=== PATIENT | male | born 1965 | race Caucasian/White ===

== ENCOUNTER 2019-12-30 11:37 | Day surgery (SDC) | payer BC ==
[~2019-12-30] VITALS: Ht 172.7 cm; Wt 76.7 kg
--- NOTE | 2019-12-30 12:26 | NUR ---
12/30/19 1226 True,Miky MARINELLI DRAWN SENT TO LAB
== END 2019-12-30 13:43 | disposition home or self-care (01) ==
LOC: ORSCSDS 11:37
PROVIDERS: Internal Medicine Gastroenterology
PROC: 0DBK8ZX Excision of Ascending Colon, Via Natural or Artificial Opening Endoscopic, Diagnostic (ICD-10-PCS; principal; 2019-12-30 13:00)
DX: Z12.11 Encounter for screening for malignant neoplasm of colon (principal); Z86.010 Personal history of colon polyps; Z80.0 Family history of malignant neoplasm of digestive organs; D12.2 Benign neoplasm of ascending colon; K57.30 Diverticulosis of large intestine without perforation or abscess without bleeding
CPT/HCPCS: 86803; 88305; J2704; J7120

== ENCOUNTER → 2022-11-09 | Outpatient (CLI) | payer BC | END | disposition home or self-care (01) | LOC: LAB SHORT 14:36 → LAB 14:36 | DX: R30.0 Dysuria (principal) | CPT/HCPCS: 87086 ==